=== PATIENT | female | born 1985 | race Caucasian/White ===

== ENCOUNTER 2017-09-30 11:11 | Emergency (ER) | payer OTHER, SELFPAY ==
[2017-09-30 11:11] VITALS: BP 163/95; PULSE 75; RESP 15; TEMP 36.3; O2SAT 98; BMI 33.2
--- NOTE | 2017-09-30 11:25 | US_ITS ---
STUDY: ABDOMINAL ULTRASOUND - RIGHT UPPER QUADRANT REASON FOR VISIT: Female, 32 years old. Epigastric pain. TECHNIQUE: Ultrasound evaluation of the right upper quadrant was performed with real-time and static wilson-scale imaging. TECHNICAL QUALITY: Adequate. COMPARISON: None. FINDINGS: Liver: The liver measures 16.0 cm. There is increased echogenicity consistent with fatty infiltration. The bile ducts are within normal limits. There is hepatic color flow. The direction of portal flow is hepatopetal. There is no demonstrated mass lesion. Gallbladder: Normal distended gallbladder. The gallbladder wall measures 2.0 mm. There is a negative sonographic Charles's sign. There is no pericholecystic fluid. There are multiple echogenic structures within the gallbladder, consistent with multiple gallstones. A small amount of sludge is seen within the gallbladder lumen. Common Bile Duct (C.B.D.): The common bile duct measures 5.6 mm. Pancreas: Normal size of the head, body and tail of the pancreas. There is normal echogenicity of the pancreas. There is no demonstrated pancreatic mass or cyst. Right Kidney: Normal size of the right kidney. The right kidney measures 11.7 cm x 4.2 cm x 4.6 cm. Normal renal cortex. The right cortex measures 1.4 cm. There is no demonstrated renal mass or cyst. There is no right hydronephrosis. US/Gallbladder IMPRESSION: Multiple gallstones and sludge seen within the gallbladder lumen. Fatty infiltration of the liver. Electronically Signed: Slade Milan MD at 12:49 EDT Tel [phone], Service support ,
--- NOTE | 2017-09-30 11:25 | ED.VISSUMM ---
- ER Visit Summary Date of Service: 09/30/17 Chief Complaint: Epigastric abdominal pain History of Present Illness: The patient is a 32 F reflux, high cholesterol and asthma. States her getting pain around 6 AM this morning epigastric region. Did not respond to her reflux medications. She is concerned may be her gallbladder. She has not eaten since around midnight. No history of gallstones. Nausea without vomiting. No diarrhea or fever. No melena. No hematemesis. No abdominal trauma. No prior abdominal surgery other than salpingectomy. Physical Examination: Well appearing young female. Vital signs are stable afebrile. Does not look septic or toxic. H EENT exam unremarkable neck nontender lungs clear to auscultation bilaterally. Heart regular rate and rhythm no murmur. Abdomen is soft nondistended normal bowel sounds. Mild epigastric tenderness. No pulsatile mass. No Charles sign no McBurney's point tenderness. No hernias or masses. No signs of obstruction. Positive bowel sounds. Moving all 4 extremities. Without edema. Back exam nontender. Neurologic exam normal. Test Results: CBC normal. BMP normal. Liver enzymes normal. Lipase normal. Ultrasound of the gallbladder shows multiple gallstones and sludge. No cholecystic fluid. No Charles sign. Emergency Department Course and Treatment: Patient did not waiting for pain and nausea at this time. She will undergo screening labs for evaluation of upper abdominal pain and a right upper quadrant ultrasound. Treatment Plan: Multiple repeat exams patient is doing well currently at 1400. Will be discharged home. She will be instructed to follow-up with Dr. 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 Disposition: Discharge Impression: Acute epigastric abdominal pain and biliary colic secondary to gallstones This note was generated with [employer] dictation software. It may contain incorrect words, spelling, and punctuation that were not noted in review of the chart prior to signing ED Disposition - Plan for ED Patient: Chief Complaint: Abd Pain Referrals: Odilon Wilde MD [Primary Care Provider] -
[2017-09-30 11:45] LABS: Absolute Lymphocyte Count 1.33 X10^3/ul (0.83-4.51); Absolute Neutrophil Count 3.5 X10^3/uL (2.0-7.7); Basophil# 0.03 X10^3/uL; Basophil% 0.5 % (0-1); Eosinophil# 0.17 X10^3/uL; Eosinophils% 3.1 % (0-5); Hematocrit 38.4 % (37-47); Hemoglobin 13.6 g/dl (12.0-15.0); Lymphocyte # 1.33 X10^3/ul (4.0); Lymphocyte % 24.3 % (19-41); Mean Corp Hgb Conc 35.4 g/gl (32-36); Mean Corpuscular Hgb 28.6 pg (27.0-32.0); Mean Corpuscular Volume 80.8 fL (81-99); Mean Platelet Vol. 9.3 fl (6.2-12.0); Monocyte# 0.39 X10^3/uL; Monocyte% 7.1 % (0-10); Neutrophil # 3.54 X10^3/uL (2.7-7.7); Neutrophil % 64.8 % (47-70); POSITIVE COUNT NO; POSITIVE DIFFERENTIAL NO; POSITIVE MORPHOLOGY NO; Platelet Count 233 K/mm3 (150-450); RBC Distribution Width CV 12.7 % (11.6-14.6); RBC Distribution Width SD 36.7 fl (35.1-43.9); Red Blood Count 4.75 M/mm3 (4.2-5.4); White Blood Count 5.5 K/mm3 (4.4-11.0)
[2017-09-30 12:00] LABS: AST(SGOT) 28 U/L (15-37); Alanine Aminotransfer ALT/SGPT 35 U/L (13-56); Alkaline Phosphatase 92 U/L (45-117); Anion Gap 10 (5-15); BUN 12 mg/dL (7-18); BUN/Creat Ratio 15.7 RATIO (10-20); Bilirubin, Direct 0.18 mg/dL (0.00-0.30); Chloride 104 mmol/L (98-107); Creatinine, Serum 0.76 mg/dL (0.55-1.02); EST Glomerular Filtration Rate 92 mL/min (>60); Est Glom Filt Rate - Afr Amer 112 mL/min (>60); Estimated Creatinine Clearance 87.09 ml/min; Globulin 3.6 g/dL (2.2-4.2); Glucose 100 mg/dL (74-106); Lipase 168 U/L (73-393); Potassium 3.8 mmol/L (3.5-5.1); Protein, Total 7.6 g/dL (6.4-8.2); Sodium Level 141 mmol/L (136-145)
[2017-09-30 13:13] VITALS: RESP 16
[2017-09-30 14:13] VITALS: BP 130/96; PULSE 72; RESP 14; O2SAT 99
--- NOTE | 2017-09-30 14:13 | ED.DEP ---
ED Disposition - Plan for ED Patient: Disposition: Home or Assisted Living Chief Complaint: Abd Pain Instructions: ED Abdominal Pain Gallstone Poss Referrals: Jaison Ramesh MD [STAFF PHYSICIAN] - As soon as possible Additional Instructions: Call and follow-up with Dr. Ramesh general surgery or general surgery new choice. Motrin for pain. Return to ER if intractable pain, fever or intractable vomiting. On the ultrasound you have gallstones.
== END 2017-09-30 14:27 | disposition home or self-care (01) ==
PROVIDERS: Emergency Provider Emergency Medicine; Family Provider Family Medicine; PCP Family Medicine
DX: K80.70 Calculus of gallbladder and bile duct without cholecystitis without obstruction (principal); J45.909 Unspecified asthma, uncomplicated; K21.9 Gastro-esophageal reflux disease without esophagitis; Z79.899 Other long term (current) drug therapy
CPT/HCPCS: 76705; 80048; 80076; 83690; 85025; 99283; J7030; A4216

== ENCOUNTER 2017-10-08 11:51 | Day surgery (SDC) | payer OTHER, SELFPAY ==
[2017-10-08] VITALS (12 sets, daily range): BP systolic 125–160; BP diastolic 83–111; PULSE 65–99; RESP 14–16; TEMP 36.1–37; O2SAT 95–100; BMI 33.3
[2017-10-08] MEDS: Clindamycin 900 MG/50 ML BAG 75 MG IV (13:27)
--- NOTE | 2017-10-08 13:35 | PCM.DC.GB ---
Discharge Diet: Light diet - advance as tolerated Discharge Activity: May Not Drive - for 2-3 days or while taking narcotic pain medications., - - Do not drive, work heavy equipment or sign legal documents for 24 hours. May shower in (days): 1 - with the bandage in place. Additional Activity Instructions:: Pain medication may cause nausea. You should typically eat light foods as you take your pain medications. Pain medication may also cause constipation. If this is a problem for you, please discuss with your doctor. Call your doctor if your incision/area has: Continuous Slow Oozing, Sudden Increased Bleeding, Increased Pain/ Swelling, Increased Redness, Foul Smelling Discharge Call your doctor if you observe: Fever of 101 or Higher Suture Line Care: Avoid Pulling/Pushing, Avoid Pinching/Bending Additional Dressing/Incision Instructions:: Leave operative bandaids on for 2 days. When you remove dressing, leave Steri-Strips on until your follow-up appointment, or until the Steri-Strips fall off on their own. Allergies/Adverse Reactions: Allergies Penicillins Allergy (Verified 10/04/17 10:45) Unknown shellfish derived Allergy (Verified 10/04/17 10:45) Unknown Medications to take at Discharge Albuterol Inhaler [Ventolin Hfa (SP)] 2 puff INHALATION Q4H PRN PRN 12/02/16 Albuterol Aerosols [Ventolin Aerosols] 2.5 mg INHALATION Q4H PRN PRN 05/08/17 Atorvastatin Calcium [Lipitor] 10 mg PO QHS 05/08/17 Beclomethasone Diprop Inhaler [Qvar 80 Mcg Inhaler] 1 puff INHALATION BID 05/08/17 Ranitidine [Zantac] 150 mg PO DAILY PRN 09/30/17 prednisone 10 mg tablet 10 mg PO QDAY 12 Days #30 tab 10/04/17 Oxycodone HCl/Acetaminophen [Percocet 5/325] 1 - 2 tab PO Q4H PRN PRN 4 Days #30 tab 10/08/17 The following prescriptions were given: Oxycodone HCl/Acetaminophen [Percocet 5/325] 1 - 2 tab PO Q4H PRN PRN 4 Days #30 tab PRN Reason: Pain Primary Care Physician: Odilon Wilde MD [Primary Care Provider] - Please Follow Up With: Jaison Ramesh MD - Please call [phone] to schedule an appointment. When: 7 days after your surgery.
--- NOTE | 2017-10-08 13:36 | PCM.OPRPT ---
Problem List (1) Calculus of gallbladder with acute on chronic cholecystitis without obstruction Status: Acute (2) Epigastric pain Status: Acute Report of Operation Date of Procedure: 10/08/17 Pre-Operative Diagnosis: k80.12 acute on chronic cholecystitis with cholelithiasis Post-Operative Diagnosis: same Surgery/Procedure Performed:: 60934 laparoscopic cholecystectomy Type of Anesthesia:: General Anesthesiologist: Christopher Potts Description of Procedure: Patient was brought into the operating room. Placed in the supine position. Under excellent general endotracheal intubation the abdomen was sterilely prepped and draped in usual fashion. Local was injected infraumbilically. Dissection was carried down to the fascia. Fascia was grasped with [place]. Varies needle was placed inside the abdomen the abdomen was insufflated 15 torr. A 10/12 trocar was placed without difficulty. Patient was placed in the head up and rotated to the left position. A subxiphoid #5 trocar was placed. Inferior to this another #5 trocar was placed, and laterally a #5 trocar was placed. All these under direct visualization without injury to underlying structures. Fundus of the gallbladder was grasped and retracted in cephalad direction. Moderate amount of adhesions were taken down from the gallbladder with blunt dissection. Excellent hemostasis was noted. I dissected out the cystic duct. I placed a Hemoclip proximally and distally in the duct and ligated the duct. Identified the cystic artery. Placed hemoclips proximally and distally and ligated the artery. I deliver the gallbladder from the gallbladder bed with use of electrocautery had no spillage of bile or stones. Placed a specimen specimen bag delivered through the umbilical port. I had to lengthen the umbilical defect cephalad to get the gallbladder out. I placed the trochars back in reinflated the abdomen I had excellent hemostasis. I remove the trochars under direct visualization good hemostasis was noted. Close the fascia the umbilical port with a [id number] stitch of 0 Vicryl ?2. Skin incisions were closed with a particular stitches of 4-0 Monocryl. Steri-Strips are applied sterile dressings were applied and the patient tolerated the procedure well. - Admit VTE Documentation VTE Present on Admission: No VTE Mechan Device Prophylaxis: SCD's VTE Pharm Prophylaxis ordered?: No Reason prophylaxis not ordered:: Treatment Not Indicated
--- NOTE | 2017-10-08 14:00 | GALL_PTH ---
PATIENT: YORDY MILLIGAN LOC: [facility] [place] U#:[id number] AGE/SX: 32/F ROOM: RE10/08/[address]: Dr. Jaison Ramesh MD : 1985 BED: DIS: 10/08/2017 SPEC #: [id number] RECD: 10/08/17 15:34 STATUS: ABDULLAHI MARIELENA #: [id number] MELISSA: 10/08/17 14:[address]: Jaison Ramesh DEPT: SURGICAL PATHOLOGY RECD BY: Glen Kraft ENTERED: 10/09/17 09:12 SP TYPE: TITA DORADO DR: Dr. Odilon Wilde MD Tissues: Gallbladder, NOS Procedures: Surgery Specimen Level III HEADER OPERATION: Laparoscopic cholecystectomy PRE-OP DIAGNOSIS: Calculus of gallbladder with acute on chronic cholecystitis without obstruction TISSUE SUBMITTED: Gallbladder MICROSCOPIC DIAGNOSIS Gallbladder: Chronic cholecystitis and cholelithiasis. SJ:awa 10/10/17 MICROSCOPIC DESCRIPTION Slides are reviewed. GROSS DESCRIPTION Received is one container labeled with the patient's name and designated gallbladder. The specimen consists of a gallbladder measuring 10 cm in length and 3 cm in diameter. The external surface is pink-silva, smooth and glistening for the most part. Focally it is granular, hemorrhagic and contains cautery artifact. The gallbladder contains green-yellow mucoid bile and multiple ovoid to multifaceted greenish-brown stones measuring in aggregate 4.5 x 4 x 2 cm and 1 to 2 cm in greatest dimension. The mucosa is bile-stained and without any mass lesions. The gallbladder wall measures up to 0.2 cm in thickness. Flat Grinder Operator sections from the gallbladder and the cystic duct are submitted in one cassette. / SJ:rg 10/09/17 TC:3 CPT: 40369
[2017-10-08] MEDS: Bupivacaine Mpf 0.5% 30 ML VIAL (14:06)
== END 2017-10-08 18:38 | disposition home or self-care (01) ==
LOC: SDC 11:51 → AC 11:53
PROVIDERS: Family Provider Family Medicine; PCP Family Medicine; Visit Provider Surgery
PROC: (CPT 47562; principal; 2017-10-08 13:40)
DX: K80.12 Calculus of gallbladder with acute and chronic cholecystitis without obstruction (principal); Z79.899 Other long term (current) drug therapy; J45.909 Unspecified asthma, uncomplicated; E78.00 Pure hypercholesterolemia, unspecified; K21.9 Gastro-esophageal reflux disease without esophagitis
CPT/HCPCS: 00790; 47562; 88304; 93005; J7120; J2405

== ENCOUNTER 2020-09-06 09:01 | Outpatient (RCR) | payer OTHER, SELFPAY ==
[2019-08-17 13:19] VITALS: BMI 31.0
== END 2020-09-09 23:59 ==
LOC: EMPH 09:01
PROVIDERS: PCP Family Medicine; Visit Provider Family Medicine Geriatric Medicine
DX: Z03.818 Encounter for observation for suspected exposure to other biological agents ruled out (principal)
CPT/HCPCS: 87426

== ENCOUNTER 2021-05-17 12:21 | Outpatient (CLI) | payer OTHER, SELFPAY ==
[2021-05-17 12:42] VITALS: BP 147/106; PULSE 90; RESP 16; TEMP 37.2; O2SAT 100; BMI 30.9
[2021-05-17 13:07] VITALS: BP 133/95; PULSE 81; RESP 16; TEMP 36.6; O2SAT 99
[2021-05-17 14:07] VITALS: BP 133/98; PULSE 92; RESP 16; TEMP 36.8; O2SAT 99
== END 2021-05-17 23:59 | disposition home or self-care (01) ==
LOC: MS3OUT 12:21 → MS3 12:23
PROVIDERS: PCP Family Medicine; Referring Provider Nurse Practitioner Adult Health; Visit Provider Nurse Practitioner Adult Health
DX: Z23 Encounter for immunization (principal); U07.1 COVID-19
CPT/HCPCS: J7050; M0243; Q0240

== ENCOUNTER → 2022-08-01 | Outpatient (CLI) | payer OTHER, SELFPAY ==
[2022-08-01 10:19] LABS: Absolute Lymphocyte Count 2.13 X10^3/uL (0.83-4.51); Absolute Neutrophil Count 3.9 X10^3/uL (2.0-7.7); Basophil# 0.06 X10^3/uL; Basophil% 0.8 % (0-1); Eosinophil# 0.68 X10^3/uL; Eosinophils% 9.4 % (0-5); Hematocrit 27.8 % (37-47); Hemoglobin 9.1 g/dL (12.0-15.0); Lymphocyte # 2.13 X10^3/ul (0.83-4.51); Lymphocyte % 29.4 % (19-41); Mean Corp Hgb Conc 32.7 g/dL (32-36); Mean Corpuscular Hgb 27.5 pg (27.0-32.0); Mean Platelet Vol. 9.1 fl (6.2-12.0); Monocyte# 0.48 X10^3/uL; Monocyte% 6.6 % (0-10); NRBC Flagged by Analyzer 0 % (0-5); Neutrophil # 3.87 X10^3/uL (2.7-7.7); Neutrophil % 53.5 % (47-70); Platelet Count 310 K/mm3 (150-450); RBC Distribution Width CV 13.1 % (11.6-14.6); RBC Distribution Width SD 39.9 fl (35.1-43.9); Red Blood Count 3.31 M/mm3 (4.2-5.4); White Blood Count 7.2 K/mm3 (4.4-11.0)
[2022-08-01 10:42] LABS: Estradiol 46.1 pg/mL; Follicle Stimulating Hormone 6.6 mIU/mL; Luteinizing Hormone 15.8 mIU/mL; T4 Free Direct 0.94 ng/dL (0.76-1.46); Thyroid Stim Hormone (TSH) 3.06 uIU/mL (0.358-3.74)
== END | disposition home or self-care (01) ==
LOC: WOBLAB 09:31
PROVIDERS: PCP Family Medicine; Visit Provider Obstetrics & Gynecology
DX: N93.9 Abnormal uterine and vaginal bleeding, unspecified (principal)
CPT/HCPCS: 36415; 82670; 83001; 83002; 84439; 84443; 85025

== ENCOUNTER → 2022-08-10 | Outpatient (CLI) | payer OTHER, SELFPAY ==
--- NOTE | 2022-08-10 | EMB_PTH ---
PATIENT: YORDY MILLIGAN LOC: [facility] U#:[id number] AGE/SX: 36/F ROOM: RE08/10/[address]: Dr. Prieto David MD : 1985 BED: DIS: 08/10/2022 SPEC #: [id number] RECD: 08/10/22 12:09 STATUS: ABDULLAHI MARIELENA #: [id number] MELISSA: 08/10/22 00:[address]: Prieto David DEPT: SURGICAL PATHOLOGY RECD BY: Jenifer Tejada ENTERED: 08/10/22 13:11 SP TYPE: ENDOM BX/C AVE DR: Dr. Odilon Wilde MD Tissues: Endometrium, NOS Procedures: Surgery Specimen Level IV HEADER OPERATION: Endometrial biopsy PRE-OP DIAGNOSIS: N93.9 TISSUE SUBMITTED: Endometrial biopsy MICROSCOPIC DIAGNOSIS Endometrium, biopsy: Mildly disordered proliferative endometrium with focal glandular breakdown. AM:awa 08/13/2022 MICROSCOPIC DESCRIPTION Slides are reviewed. GROSS DESCRIPTION Received is one container labeled with the patient's name and not further designated. The specimen consists of multiple fragments of hemorrhagic soft tissue predominantly consisting of blood that in aggregate measure 3.0 x 2.5 x 0.3 cm. The specimen is totally submitted in one cassette. / SJ:awa 08/10/2022 TC:5 CPT: 58301
== END | disposition home or self-care (01) ==
LOC: LABSPEC 12:17
PROVIDERS: PCP Family Medicine; Referring Provider Obstetrics & Gynecology; Visit Provider Obstetrics & Gynecology
DX: N93.9 Abnormal uterine and vaginal bleeding, unspecified (principal)
CPT/HCPCS: 88305